=== PATIENT | male | born 1975 | race Caucasian/White ===

== ENCOUNTER 2016-11-12 14:44 | Emergency (ER) | payer OTHER ==
[~2016-11-12] VITALS: Ht 188 cm; Wt 188.0 kg
[~2016-11-12 14:44] MED LIST: BENZ100 PO; CHERSYP2 PO; ENAL20TA PO; HYDR25TA5 PO; LEVA500T PO; MEDR4PAK PO; METO50TA PO; NIFE60TA58 PO; VENTAER INH
[2016-11-12 14:48] VITALS: BP 166/88; PULSE 83; RESP 16; TEMP 98.2; O2SAT 95
[2016-11-12] MEDS ORDERED: SODIUM CHLOR 0.9% 1000 ML INJ 1,000 ML IV ONE (15:00)
[2016-11-12] MEDS ORDERED: ONDANSETRON HCL 4 MG/2 ML VIAL IV PUSH ONE (15:00)
--- NOTE | 2016-11-12 15:13 | PD ---
HPI Chief Complaint: GI Complaint Time Seen by Provider: 14:54 Travel History International Travel<30 days: No Contact w/Intl Traveler<30days: No Traveled to known affect area: No History of Present Illness HPI 40-year-old male presents with nonbloody vomiting and diarrhea since with now generalized weakness. He states that he feels worse when he moves around. He denies other modifying factors. He denies any current abdominal pain or fever or other complaints. He is been taking his blood pressure medication like he should except for he ran out of hydrochlorothiazide. Quality is nonbloody. Severity is about 2 episodes or so per day. PFSH Past Medical History Arthritis: Yes Asthma: Yes Autoimmune Disease: No Anxiety: Yes Heart Rhythm Problems: Yes (PVC'S) Cancer: No Cardiac Catheterization: No Cardiovascular Problems: Yes (htn on meds) High Cholesterol: Yes Chemotherapy: No Chest Pain: Yes Congestive Heart Failure: No Cerebrovascular Accident: No Diabetes: No Diminished Hearing: No Endocrine: No Gastrointestinal Disorders: Yes GERD: Yes Headaches: Yes Hypertension: Yes Kidney Stones: Yes Musculoskeletal: Yes Neurologic: Yes Psychiatric: Yes (PANIC ATTACKS) Reproductive: No Respiratory: Yes (? asthma) Immunizations Current: Yes Migraines: Yes Radiation Therapy: No Past Surgical History Coronary Artery Bypass Graft: No Other Surgery: Yes Social History Alcohol Use: Yes (OCCASSIONAL BEER) Tobacco Use: No Substance Use: No Allergies-Medications (Allergen,Severity, Reaction): Coded Allergies: Bees (Verified Allergy, Severe, Anaphylaxis, 11/12/16) . Latex (Verified Allergy, Intermediate, Rash, 11/12/16) . Uncoded Allergies: WASPS (Allergy, Severe, Anaphylaxis, 05/27/16) . Reported Meds & Prescriptions Reported Meds & Active Scripts Active Phenergan (Promethazine HCl) 25 Mg Tab 25 Mg PO Q6H PRN Reported Pantoprazole (Pantoprazole Sodium) 40 Mg Tab 40 Mg PO DAILY Gabapentin 100 Mg Cap 100 Mg PO TID Trazodone (Trazodone HCl) 100 Mg Tab 200 Mg PO HS Metoprolol Tartrate 50 Mg Tab 1.5 Tab PO BID Nifedipine ER 24 HR (Nifedipine) 60 Mg Tab 60 Mg PO DAILY Enalapril (Enalapril Maleate) 20 Mg Tab 20 Mg PO BID Hydrochlorothiazide 25 Mg Tab 25 Mg PO DAILY Review of Systems Except as stated in HPI: all other systems reviewed are Neg Physical Exam Narrative GENERAL: Well-nourished, well-developed patient. well appearing SKIN: Warm and dry. HEAD: Normocephalic and atraumatic. EYES: No injection or drainage. ENT: No nasal drainage noted. NECK: Supple, trachea midline. CARDIOVASCULAR: Regular rate and rhythm RESPIRATORY: no increased effort. No accessory muscle use. GASTROINTESTINAL: Abdomen soft, non-tender, nondistended. EXTREMITIES: No edema. NEUROLOGICAL: Awake and alert. Motor and sensory grossly within normal limits. Normal speech. Data Data Last Documented VS Vital Signs Date Time Temp Pulse Resp B/P Pulse Ox O2 Delivery O2 Flow Rate FiO2 11/12/16 14:48 98.2 83 16 166/88 95 Orders Complete Blood Count With Diff (11/12/16 15:00) Basic Metabolic Panel (Bmp) (11/12/16 15:00) Iv Access Insert/Monitor (11/12/16 15:00) Ondansetron Inj (Zofran Inj) (11/12/16 15:00) Sodium Chlor 0.9% 1000 Ml Inj (Ns 1000 M (11/12/16 15:00) Labs Laboratory Tests Test 11/12/16 15:10 White Blood Count 8.9 TH/MM3 Red Blood Count 4.96 MIL/MM3 Hemoglobin 14.4 GM/DL Hematocrit 42.9 % Mean Corpuscular Volume 86.4 FL Mean Corpuscular Hemoglobin 29.1 PG Mean Corpuscular Hemoglobin 33.7 % Concent Red Cell Distribution Width 12.3 % Platelet Count 276 TH/MM3 Mean Platelet Volume 7.4 FL Neutrophils (%) (Auto) 67.5 % Lymphocytes (%) (Auto) 22.1 % Monocytes (%) (Auto) 7.8 % Eosinophils (%) (Auto) 1.8 % Basophils (%) (Auto) 0.8 % Neutrophils # (Auto) 5.9 TH/MM3 Lymphocytes # (Auto) 2.0 TH/MM3 Monocytes # (Auto) 0.7 TH/MM3 Eosinophils # (Auto) 0.2 TH/MM3 Basophils # (Auto) 0.1 TH/MM3 CBC Comment DIFF FINAL Differential Comment Sodium Level 143 MEQ/L Potassium Level 3.6 MEQ/L Chloride Level 107 MEQ/L Carbon Dioxide Level 28.5 MEQ/L Anion Gap 8 MEQ/L Blood Urea Nitrogen 14 MG/DL Creatinine 0.84 MG/DL Estimat Glomerular Filtration 100 ML/MIN Rate Random Glucose 115 MG/DL Calcium Level 8.3 MG/DL MDM Medical Decision Making Medical Screen Exam Complete: Yes Emergency Medical Condition: Yes Medical Record Reviewed: Yes (pmh confirmed) Interpretation(s) CBC & BMP Diagram 11/12/16 15:10 Differential Diagnosis Gastroenteritis, acute renal failure, electrolyte deficiency, colitis Narrative Course Will check labs and dose with IV fluids and Zofran and reevaluate labs wnl, Patient denies any new complaints and states that they are feeling better. no emesis here, Patient happy with care, all questions answered. Patient knows that follow up is incumbent on them and to return to the emergency room immediately if new or worsening symptoms develop. Patient given strict return precautions, vitals reviewed and are normal, agrees to further workup as an outpatient. Diagnosis Primary Impression: Vomiting and diarrhea Patient Instructions: General Instructions Additional Instructions: phenergan as needed, keep hydrated, follow with primary this week for recheck Med/Other Pt SpecificInfo: Prescription(s) given Scripts Promethazine (Phenergan)25 Mg Tab25 Mg PO Q6H PRN (NAUSEA OR VOMITING) #15 TAB Prov:Aishwarya Bailey MD 11/12/16 Disposition: 01 DISCHARGE HOME Condition: Stable Aishwarya Bailey MD November 12, 2016 15:13 Aishwarya Bailey MD November 12, 2016 15:13
[2016-11-12 15:18] LABS: AUTOMATED NEUTROPHIL # 5.9 TH/MM3 (1.8-7.7); BASOPHIL # 0.1 TH/MM3 (0-0.2); BASOPHIL % 0.8 % (0.0-2.0); EOSINOPHIL # 0.2 TH/MM3 (0-0.4); EOSINOPHIL % 1.8 % (0.0-4.0); HEMATOCRIT 42.9 % (39.0-51.0); HEMO FLAGS DIFF FINAL; LYMPH % 22.1 % (9.0-44.0); MEAN CELL VOLUME 86.4 FL (80.0-100.0); MEAN CORPUSCULAR HEMOGLOBIN 29.1 PG (27.0-34.0); MEAN CORPUSCULAR HGB CONC 33.7 % (32.0-36.0); MONO % 7.8 % (0.0-8.0); NEUT % 67.5 % (16.0-70.0); PLATELET COUNT 276 TH/MM3 (150-450); RED BLOOD COUNT 4.96 MIL/MM3 (4.50-5.90); RED CELL DISTRIBUTION WIDTH 12.3 % (11.6-17.2); WHITE BLOOD COUNT 8.9 TH/MM3 (4.0-11.0)
[2016-11-12] MEDS ORDERED: GABA100C4 PO (15:26)
[2016-11-12] MEDS ORDERED: TRAZ100T4 PO (15:26)
[2016-11-12] MEDS ORDERED: PANT40TA3 PO (15:26)
[2016-11-12 15:28] LABS: POTASSIUM 3.6 MEQ/L (3.5-5.1)
[2016-11-12 15:31] LABS: BICARBONATE 28.5 MEQ/L (21.0-32.0)
[2016-11-12] MEDS ORDERED: PROM25TA5 PO (15:40)
[2016-11-12 16:11] VITALS: BP 154/67; PULSE 70; RESP 18; O2SAT 96
== END 2016-11-12 16:20 | disposition home or self-care (01) ==
LOC: PHED 14:44
DX: R19.7 Diarrhea, unspecified (principal); R11.10 Vomiting, unspecified; R53.1 Weakness
CPT/HCPCS: 80048; 85025; 96361; 96374; 99284; J2405; J7030

== ENCOUNTER 2017-05-27 12:59 | Inpatient (IN) | payer OTHER ==
[~2017-05-27] VITALS: Ht 198.1 cm; Wt 181.6 kg
[2017-05-27] VITALS (8 sets, daily range): BP systolic 127–181; BP diastolic 64–87; PULSE 75–88; RESP 18–22; TEMP 97.5–100.3; O2SAT 94–98
[~2017-05-27 12:59] MED LIST changes: -BENZ100 PO; -CHERSYP2 PO; +GABA100C4 PO; -LEVA500T PO; -MEDR4PAK PO; +PANT40TA3 PO; +PROM25TA5 PO; +TRAZ100T4 PO; -VENTAER INH
[2017-05-27] MEDS ORDERED: DEXAMETHASONE SOD PHOS 4 MG/ML VIAL IM ONE (13:15)
--- NOTE | 2017-05-27 13:19 | PD ---
HPI Chief Complaint: Cold / Flu Symptoms Time Seen by Provider: 13:09 Travel History International Travel<30 days: No Contact w/Intl Traveler<30days: No Traveled to known affect area: No History of Present Illness HPI 41-year-old male complains of coughing congestion shortness of breath and wheezing. Patient states that he started having congestion 3 days ago. Patient started having dry cough as yesterday. Patient states that the cough occasionally with sputum production. Patient denies any chest pain. Patient states that he has shortness of breath. Patient has history of asthma. Patient has been using inhaler at home. Patient states that he has mild headache, body ache, fever chills also. PFSH Past Medical History Arthritis: Yes Asthma: Yes Autoimmune Disease: No Anxiety: Yes Heart Rhythm Problems: Yes (PVC'S) Cancer: No Cardiac Catheterization: No Cardiovascular Problems: Yes (htn on meds) High Cholesterol: Yes Chemotherapy: No Chest Pain: Yes Congestive Heart Failure: No Cerebrovascular Accident: No Diabetes: No Diminished Hearing: No Endocrine: No Gastrointestinal Disorders: Yes GERD: Yes Headaches: Yes Heparin Induced Thrombocytopen: No Hypertension: Yes Implanted Vascular Access Dvce: No Kidney Stones: Yes Musculoskeletal: Yes Neurologic: Yes Psychiatric: Yes (PANIC ATTACKS) Reproductive: No Respiratory: Yes (? asthma) Immunizations Current: Yes Migraines: Yes Radiation Therapy: No Past Surgical History Coronary Artery Bypass Graft: No Other Surgery: Yes Social History Alcohol Use: Yes (OCCASSIONAL BEER) Tobacco Use: No Substance Use: No Allergies-Medications (Allergen,Severity, Reaction): Coded Allergies: bee venom protein (honey bee) (Unverified Allergy, Severe, Anaphylaxis, ) . latex (Unverified Allergy, Intermediate, Rash, 05/27/17) . Uncoded Allergies: WASPS (Allergy, Severe, Anaphylaxis, 05/27/16) . Reported Meds & Prescriptions Reported Meds & Active Scripts Active Zithromax Z-Oral (Azithromycin) 250 Mg Dspk 250 Mg PO DIRECTED 500 MG (2 tabs) day 1, then 1 tab days 2-5. [Phenergan W Codein] 10 Ml PO Q6HR Symbicort Inh (Budesonide/Formoterol Fumarate) 160-4.5 Mcg/Act Aero 2 Puff INH Q12HR Ventolin Hfa 18 GM Inh (Albuterol Sulfate) 90 Mcg/Act Aer 2 Puff INH Q4H PRN Prednisone 20 Mg Tab 20 Mg PO BID Reported Potassium Chloride ER (Potassium Chloride) 10 Meq Cap Unknown Dose PO DAILY Furosemide 40 Mg Tab Unknown Dose PO DAILY [place] Plus Cold (Ysfgicifbolhtcbd-Ggvhdstiojxhe-Uvrspbt) 2-7.8-325 Mg Tab 2 Tab PO Q4H PRN Fully disolve tablets in 4 oz of water. Pantoprazole (Pantoprazole Sodium) 40 Mg Tab 40 Mg PO DAILY Gabapentin 100 Mg Cap 100 Mg PO TID Metoprolol Tartrate 50 Mg Tab 1.5 Tab PO BID Nifedipine ER 24 HR (Nifedipine) 60 Mg Tab 60 Mg PO DAILY Enalapril (Enalapril Maleate) 20 Mg Tab 20 Mg PO BID Hydrochlorothiazide 25 Mg Tab 25 Mg PO DAILY Review of Systems General / Constitutional: Positive: Fever Eyes: No: Visual changes HENT: No: Headaches Cardiovascular: No: Chest Pain or Discomfort Respiratory: Positive: Cough, Shortness of Breath, Wheezing Gastrointestinal: No: Abdominal Pain Genitourinary: No: Dysuria Musculoskeletal: No: Pain Skin: No Rash Neurologic: No: Weakness Psychiatric: No: Depression Endocrine: No: Polydipsia Hematologic/Lymphatic: No: Easy Bruising Physical Exam Narrative GENERAL: Well-nourished, well-developed patient. SKIN: Focused skin assessment warm/dry. HEAD: Normocephalic. EYES: No scleral icterus. No injection or drainage. NECK: Supple, trachea midline. No JVD or lymphadenopathy. CARDIOVASCULAR: Regular rate and rhythm without murmurs, gallops, or rubs. RESPIRATORY: Breath sounds equal bilaterally. No accessory muscle use. Patient has moderate expiratory wheezes bilaterally. No rhonchi. GASTROINTESTINAL: Abdomen soft, non-tender, nondistended. MUSCULOSKELETAL: No cyanosis, or edema. BACK: Nontender without obvious deformity. No CVA tenderness. Neurologic exam normal. Data Data Last Documented VS Vital Signs Date Time Temp Pulse Resp B/P (MAP) Pulse Ox O2 Delivery O2 Flow Rate FiO2 05/27/17 14:15 88 20 143/70 (94) 96 Room Air 05/27/17 13:04 100.3 Orders Orders Influenzae A/B Antigen (05/27/17 13:13) Chest, Single Ap (05/27/17 13:13) Albuterol-Ipratropium Neb (Duoneb Neb) (05/27/17 13:15) Dexamethasone Inj (Decadron Inj) (05/27/17 13:15) Acetamin-Codeine 120-12 Liq (Tylenol - C (05/27/17 14:00) Albuterol-Ipratropium Neb (Duoneb Neb) (05/27/17 14:00) Complete Blood Count With Diff (05/27/17 14:30) Basic Metabolic Panel (Bmp) (05/27/17 14:30) Iv Access Insert/Monitor (05/27/17 14:30) Oximetry (05/27/17 14:30) [facility] Medical Decision Making Medical Screen Exam Complete: Yes Emergency Medical Condition: Yes Interpretation(s) Last Impressions Chest X-Ray 05/27/17 1313 Signed Impressions: Service Date/Time: Saturday, May 27, 2017 13:39 - CONCLUSION: Compensated cardiomegaly otherwise negative Rony Garcia MD FACR Influenza AB antigen negative. Differential Diagnosis Differential diagnosis including viral syndrome, bronchitis, pneumonia, acute exacerbation of asthma. Narrative Course 41-year-old male with coughing congestion and shortness of breath. History of asthma. Albuterol with Atrovent unit dose treatment 3. Decadron 8 mg IM. Tylenol with codeine 12.5 mL by mouth given. Patient has persistent shortness of breath, persistent severe coughing spells, chest wall pain with coughing. Patient has moderate expiratory wheezes bilaterally after the treatment. Diagnosis Primary Impression: Acute asthma exacerbation Qualified Codes: J45.41 - Moderate persistent asthma with (acute) exacerbation Additional Impression: Acute bronchitis Qualified Codes: J20.9 - Acute bronchitis, unspecified Admitting Information Admitting Physician Requests: Observation Scripts Azithromycin (Zithromax Z-Oral) 250 Mg Dspk 250 MG PO DIRECTED for Infection, #1 DSPK 0 Refills 500 MG (2 tabs) day 1, then 1 tab days 2-5. Prov: Irvin Diehl MD 05/27/17 [Phenergan W Codein] No Conflict Check 10 ML PO Q6HR for Cough, #120 Prov: Irvin Diehl MD 05/27/17 Budesonide-Formoterol Inh (Symbicort Inh) 160-4.5 Mcg/Act Aero 2 PUFF INH Q12HR, #1 INHALER 0 Refills Prov: Irvin Diehl MD 05/27/17 Albuterol 18 GM Inh (Ventolin Hfa 18 GM Inh) 90 Mcg/Act Aer 2 PUFF INH Q4H Y for SHORTNESS OF BREATH, #1 INHALER 0 Refills Prov: Irvin Diehl MD 05/27/17 Prednisone (Prednisone) 20 Mg Tab 20 MG PO BID, #10 TAB 0 Refills Prov: Irvin Diehl MD 05/27/17 Irvin Diehl MD May 27, 2017 13:19
[2017-05-27] MEDS ORDERED: POTA10CA PO (13:23)
[2017-05-27] MEDS ORDERED: CHLOTAB5 PO (13:23)
[2017-05-27] MEDS ORDERED: FURO40TA PO (13:23)
[2017-05-27] MEDS: RESP: ALBUTEROL 2.5 MG/IPRATROPIUM 0.5 MG NEB (SCH) INH ×2 (13:24→13:25)
[2017-05-27] MEDS ORDERED: RESP: ALBUTEROL 2.5 MG/IPRATROPIUM 0.5 MG NEB (SCH) INH ONE ×2 (14:00→16:00)
[2017-05-27] MEDS ORDERED: ACETAMINOPHEN/CODEINE ELIX 120 MG/12 MG/5 ML CUP PO ONE (14:00)
--- NOTE | 2017-05-27 14:03 | RADRPT ---
EXAM DATE/TIME: 05/27/2017 13:39 [place] COMPARISON: CHEST SINGLE AP, August 25, 2014, 1:21. INDICATIONS : Short of breath MEDICAL HISTORY : Hypertension. Asthma SURGICAL HISTORY : None. ENCOUNTER: Initial ACUITY: 1 day PAIN SCORE: 0/10 LOCATION: Bilateral chest FINDINGS: The lungs are clear. The heart is minimally enlarged. The pulmonary vascularity is normal. There is n o evidence for infiltrate or failure. The portion of the bony skeleton visualized is unremarkable. CONCLUSION: Compensated cardiomegaly otherwise negative Rony Garcia MD FACR on May 27, 2017 at 14:01 Board Certified Radiologist. This report was verified electronically.
[2017-05-27] MEDS ORDERED: VENTAER INH (14:16)
[2017-05-27] MEDS ORDERED: SYMB160A INH (14:16)
[2017-05-27] MEDS ORDERED: PHENERGAN W CODEIN PO (14:16)
[2017-05-27] MEDS ORDERED: PRED20 PO (14:16)
[2017-05-27] MEDS ORDERED: ZITHTAB PO (14:17)
[2017-05-27 15:09] LABS: AUTOMATED NEUTROPHIL # 12.7 TH/MM3 (1.8-7.7); BASOPHIL # 0.2 TH/MM3 (0-0.2); BASOPHIL % 1.4 % (0.0-2.0); EOSINOPHIL # 0.1 TH/MM3 (0-0.4); EOSINOPHIL % 0.7 % (0.0-4.0); HEMATOCRIT 44.2 % (39.0-51.0); LYMPH % 12.9 % (9.0-44.0); LYMPHOCYTE # 2.1 TH/MM3 (1.0-4.8); MEAN CELL VOLUME 88.5 FL (80.0-100.0); MEAN CORPUSCULAR HEMOGLOBIN 29.9 PG (27.0-34.0); MEAN CORPUSCULAR HGB CONC 33.7 % (32.0-36.0); MONO % 8.4 % (0.0-8.0); NEUT % 76.6 % (16.0-70.0); PLATELET COUNT 272 TH/MM3 (150-450); RED BLOOD COUNT 4.99 MIL/MM3 (4.50-5.90); WHITE BLOOD COUNT 16.5 TH/MM3 (4.0-11.0)
[2017-05-27 15:14] LABS: POTASSIUM 4.1 MEQ/L (3.5-5.1)
[2017-05-27 15:17] LABS: BICARBONATE 28.3 MEQ/L (21.0-32.0)
[2017-05-27 15:27] LABS: HEMO FLAGS AUTO DIFF
[2017-05-27] MEDS ORDERED: LIDOCAINE HCL 4% TOPICAL SOLN 50 ML BTL TOPICAL ONE (15:45)
[2017-05-27 15:50] LABS: SCAN/DIFF AUTO DIFF CONFIRMED
[2017-05-27] MEDS ORDERED: RESP: LIDOCAINE HCL 4% PF 5 ML NEB NEB ONE (16:15)
[2017-05-27] MEDS ORDERED: KETOROLAC TROMETHAMINE 30 MG/ML (IVP) VIAL IV PUSH ONE (17:00)
[2017-05-27] MEDS ORDERED: RESP: ALBUTEROL 2.5 MG/3 ML NEB (PRN) NEB (17:00)
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
[2017-05-27] MEDS: GABAPENTIN 100 MG CAP PO SCH (17:40)
[2017-05-27] MEDS: LEVOFLOXACIN 750 MG PREMIX INJ 150 ML IV SCH (18:14)
[2017-05-27] MEDS ORDERED: SODIUM CHLOR 0.9% 1000 ML INJ 1,000 ML IV ONE ×2 (18:15)
[2017-05-27] MEDS: RESP: LIDOCAINE HCL 4% PF 5 ML NEB NEB PRN (19:56)
[2017-05-27] MEDS: RESP: ALBUTEROL 2.5 MG/IPRATROPIUM 0.5 MG NEB (SCH) NEB (19:56)
[2017-05-27 20:36] LABS: LACTIC ACID GHOST NOT REPORTABLE
[2017-05-27] MEDS: SODIUM CHLOR 0.9% 1000 ML INJ 1,000 ML IV SCH (20:46)
[2017-05-27] MEDS: BUDESONIDE-FORMOTEROL 160/4.5 MCG INHALER INH SCH (20:47)
[2017-05-27] MEDS: PROMETHAZINE/CODEINE 6.25 MG/10 MG/5 ML CUP PO PRN (20:47)
[2017-05-27] MEDS: ENALAPRIL MALEATE 10 MG TAB PO SCH (20:47)
[2017-05-27] MEDS ORDERED: ACETAMINOPHEN/HYDROcodone 325 MG/7.5 MG TAB PO ONE (21:30)
[2017-05-28] VITALS (7 sets, daily range): BP systolic 120–145; BP diastolic 60–75; PULSE 81–104; RESP 20–24; TEMP 96.6–97.7; O2SAT 93–98
[2017-05-28 02:42] LABS: BLOOD, URINE NEG (NEG); GLUCOSE,URINE NEG (NEG); KETONE, URINE TRACE mg/dL (NEG); NITRITE,URINE NEG (NEG)
[2017-05-28 02:43] LABS: MUCUS URINE MANY /lpf (OCC); URINE COLOR YELLOW (YELLW/STRAW)
[2017-05-28 02:45] LABS: BACTERIA, URINE MOD /hpf; SQUAMOUS EPITHELIAL CELL URINE > 8 /hpf (0-5)
[2017-05-28 02:46] LABS: COMMENT (UR) CULTURE INDICATED; CULTURE IF INDICATED CULTURE INDICATED
[2017-05-28] MEDS: PROMETHAZINE/CODEINE 6.25 MG/10 MG/5 ML CUP PO PRN ×5 (02:49→20:19)
[2017-05-28] MEDS: SODIUM CHLOR 0.9% 1000 ML INJ 1,000 ML IV SCH ×2 (03:23→08:58)
[2017-05-28 03:51] LABS: AUTOMATED NEUTROPHIL # 13.7 TH/MM3 (1.8-7.7); BASOPHIL % 0.1 % (0.0-2.0); EOSINOPHIL % 0.1 % (0.0-4.0); HEMATOCRIT 42.3 % (39.0-51.0); LYMPH % 5.9 % (9.0-44.0); LYMPHOCYTE # 0.9 TH/MM3 (1.0-4.8); MEAN CELL VOLUME 88.8 FL (80.0-100.0); MEAN CORPUSCULAR HEMOGLOBIN 29.3 PG (27.0-34.0); MONO % 5.5 % (0.0-8.0); NEUT % 88.4 % (16.0-70.0); PLATELET COUNT 256 TH/MM3 (150-450); RED BLOOD COUNT 4.76 MIL/MM3 (4.50-5.90); RED CELL DISTRIBUTION WIDTH 13.1 % (11.6-17.2); WHITE BLOOD COUNT 15.4 TH/MM3 (4.0-11.0)
[2017-05-28] MEDS: RESP: ALBUTEROL 2.5 MG/IPRATROPIUM 0.5 MG NEB (SCH) NEB ×7 (03:58→23:25)
[2017-05-28] MEDS ORDERED: KETOROLAC TROMETHAMINE 30 MG/ML (IVP) VIAL IV PUSH ONE (04:00)
[2017-05-28 04:05] LABS: CHLORIDE 99 MEQ/L (98-107); SODIUM (NA) 135 MEQ/L (136-145)
[2017-05-28 04:09] LABS: ANION GAP 8 MEQ/L (5-15); BICARBONATE 27.9 MEQ/L (21.0-32.0); BLOOD UREA NITROGEN 21 MG/DL (7-18)
[2017-05-28 04:12] LABS: ALT (GPT) 23 U/L (12-78); AST (GOT) 9 U/L (15-37); GLOMERULAR FILTRATION RATE 84 ML/MIN (>89)
[2017-05-28 04:13] LABS: TOTAL BILIRUBIN ADULT 0.2 MG/DL (0.2-1.0)
[2017-05-28 04:14] LABS: ALKALINE PHOSPHATASE 61 U/L (45-117)
[2017-05-28 04:22] LABS: HEMO FLAGS AUTO DIFF
[2017-05-28 04:23] LABS: PLATELET ESTIMATE SMEAR NORMAL (NORMAL); PLATELET MORPHOLOGY NORMAL (NORMAL); SCAN/DIFF AUTO DIFF CONFIRMED
[2017-05-28 05:44] LABS: LACTIC ACID GHOST NOT REPORTABLE
[2017-05-28 06:49] LABS: POTASSIUM 3.7 MEQ/L (3.5-5.1)
[2017-05-28 06:54] LABS: BICARBONATE 25.7 MEQ/L (21.0-32.0)
[2017-05-28] MEDS: RESP: LIDOCAINE HCL 4% PF 5 ML NEB NEB PRN ×3 (07:21→23:26)
[2017-05-28] MEDS: BUDESONIDE-FORMOTEROL 160/4.5 MCG INHALER INH SCH ×2 (08:52→20:18)
[2017-05-28] MEDS: HYDROCHLOROTHIAZIDE 25 MG TAB PO SCH (08:53)
[2017-05-28] MEDS: GABAPENTIN 100 MG CAP PO SCH ×3 (08:53→18:02)
[2017-05-28] MEDS: ENALAPRIL MALEATE 10 MG TAB PO SCH ×2 (08:53→20:19)
[2017-05-28] MEDS: PANTOPRAZOLE SOD 40 MG DELAYED RELEASE TAB PO SCH (08:53)
[2017-05-28] MEDS: NIFEdipine 60 MG SUSTAINED RELEASE TAB PO SCH (08:53)
[2017-05-28] MEDS ORDERED: NEBULIZER1 MI1 (11:40)
--- NOTE | 2017-05-28 16:07 | HHI.PR ---
Subjective Remarks Patient continues to complain of significant cough which is intractable. Previously duo nebs helping but no longer. Mild shortness of breath. He has pain below the rib cage bilaterally which is worse with coughing and severe. Objective Vitals Vital Signs Date Time Temp Pulse Resp B/P (MAP) Pulse Ox O2 Delivery O2 Flow Rate FiO2 05/28/17 11:41 97.0 101 24 139/64 (89) 95 05/28/17 08:00 96.9 81 24 145/73 (97) 95 05/28/17 07:23 95 Nasal Cannula 2.00 05/28/17 00:00 97.1 86 20 120/60 (80) 93 05/27/17 20:00 97.5 75 22 141/71 (94) 98 05/27/17 19:56 97 Nasal Cannula 2.00 05/27/17 17:00 98.2 83 18 127/64 (85) 97 05/27/17 16:14 98 21 05/27/17 16:06 I/O 05/27/17 05/27/17 05/27/17 05/28/17 05/28/17 05/28/17 07:00 15:00 23:00 07:00 15:00 23:00 Intake Total 480 ml 840 ml 2520 ml Balance 480 ml 840 ml 2520 ml Intake Oral 480 ml 840 ml 1520 ml IV Total 1000 ml # Voids 4 3 # Bowel Movements 0 Result Diagram: 05/28/17 0330 05/28/17 0440 Objective Remarks GENERAL: Well-nourished, well-developed pleasant obese male patient. SKIN: Warm and dry. HEAD: Normocephalic. EYES: No scleral icterus. No injection or drainage. NECK: Supple, trachea midline. No JVD or lymphadenopathy. CARDIOVASCULAR: Regular rate and rhythm without murmurs, gallops, or rubs. RESPIRATORY: Breath sounds equal bilaterally. No wheezing however he does have a harsh sounding intractable cough. No accessory muscle use. GASTROINTESTINAL: Abdomen soft, non-tender, nondistended. EXTREMITIES: No cyanosis, or edema. NEUROLOGICAL: Awake, alert, and oriented x 3. Non-focal. A/P Assessment and Plan -Acute asthma exacerbation with bronchitis. Continue Levaquin, DuoNeb's, oxygen via nasal cannula, Symbicort, oxygen via nasal cannula. Codeine cough syrup. We'll also start Tessalon Perles. -Possible sepsis presented with fever and leukocytosis abnormal UA. Elevated lactic acid has now returned to normal. Will DC IV fluids. Follow up urine and blood cultures. Continue Levaquin. -Hypertension. Continue HCTZ and Procardia and enalapril. -Abdominal wall pain. Add Lortab. -DVT prophylaxis with SCDs. Bibiana Suresh MD May 28, 2017 16:07
[2017-05-28] MEDS: ACETAMINOPHEN/HYDROcodone 325 MG/5 MG TAB PO PRN (16:40)
[2017-05-28] MEDS: methylPREDNISolone SOD SUCC 40 MG/1 ML VIAL IV PUSH SCH (17:59)
[2017-05-28] MEDS: BENZONATATE 100 MG CAP PO SCH (18:02)
[2017-05-28] MEDS: LEVOFLOXACIN 750 MG PREMIX INJ 150 ML IV SCH (18:03)
[2017-05-29] VITALS (10 sets, daily range): BP systolic 134–152; BP diastolic 64–82; PULSE 90–105; RESP 17–20; TEMP 97.4–98.5; O2SAT 93–98
[2017-05-29] MEDS: methylPREDNISolone SOD SUCC 40 MG/1 ML VIAL IV PUSH SCH ×4 (00:04→17:55)
[2017-05-29] MEDS ORDERED: MAGNESIUM HYDROXIDE SUSP 30 ML CUP PO ONE (00:30)
[2017-05-29] MEDS ORDERED: ZOLPIDEM TARTRATE 5 MG TAB PO ONE (00:30)
[2017-05-29] MEDS: DOCUSATE SODIUM 50 MG/SENNA 8.6 MG TAB PO PRN ×2 (00:37→09:32)
[2017-05-29] MEDS: PROMETHAZINE/CODEINE 6.25 MG/10 MG/5 ML CUP PO PRN ×5 (03:30→22:10)
[2017-05-29] MEDS: RESP: ALBUTEROL 2.5 MG/IPRATROPIUM 0.5 MG NEB (SCH) NEB ×6 (03:55→23:12)
[2017-05-29] MEDS: NIFEdipine 60 MG SUSTAINED RELEASE TAB PO SCH (09:17)
[2017-05-29] MEDS: PANTOPRAZOLE SOD 40 MG DELAYED RELEASE TAB PO SCH (09:17)
[2017-05-29] MEDS: ENALAPRIL MALEATE 10 MG TAB PO SCH ×2 (09:17→20:23)
[2017-05-29] MEDS: HYDROCHLOROTHIAZIDE 25 MG TAB PO SCH (09:17)
[2017-05-29] MEDS: BENZONATATE 100 MG CAP PO SCH ×3 (09:17→17:54)
[2017-05-29] MEDS: GABAPENTIN 100 MG CAP PO SCH ×3 (09:17→17:53)
[2017-05-29] MEDS: ACETAMINOPHEN/HYDROcodone 325 MG/5 MG TAB PO PRN ×4 (09:18→22:10)
--- NOTE | 2017-05-29 09:31 | HHI.PR ---
Subjective Remarks Patient feels that the cough is not improved. Pain under his ribs is still present. No shortness of breath except during coughing fits. Objective Vitals Vital Signs Date Time Temp Pulse Resp B/P (MAP) Pulse Ox O2 Delivery O2 Flow Rate FiO2 05/29/17 07:40 97 21 05/29/17 07:27 98 Nasal Cannula 2.00 05/29/17 00:00 98.5 90 20 134/72 (92) 95 05/28/17 20:00 96.6 93 20 138/68 (91) 96 05/28/17 19:10 98 Nasal Cannula 2.00 05/28/17 16:00 97.7 104 24 139/75 (96) 94 05/28/17 11:41 97.0 101 24 139/64 (89) 95 I/O 05/28/17 05/28/17 05/28/17 05/29/17 05/29/17 05/29/17 07:00 15:00 23:00 07:00 15:00 23:00 Intake Total 840 ml 2520 ml 1152 ml 640 ml Balance 840 ml 2520 ml 1152 ml 640 ml Intake Oral 840 ml 1520 ml 640 ml IV Total 1000 ml 1152 ml # Voids 4 3 3 # Bowel Movements 0 0 Result Diagram: 05/28/17 0330 05/28/17 0440 Objective Remarks GENERAL: Well-nourished, well-developed pleasant obese male patient. SKIN: Warm and dry. HEAD: Normocephalic. EYES: No scleral icterus. No injection or drainage. NECK: Supple, trachea midline. No JVD or lymphadenopathy. CARDIOVASCULAR: Regular rate and rhythm without murmurs, gallops, or rubs. RESPIRATORY: Breath sounds equal bilaterally. End expiratory wheezing bilaterally. Harsh sounding intractable cough. No accessory muscle use. GASTROINTESTINAL: Abdomen soft, non-tender, nondistended. EXTREMITIES: No cyanosis, or edema. NEUROLOGICAL: Awake, alert, and oriented x 3. Non-focal. A/P Assessment and Plan -Acute asthma exacerbation with bronchitis. No improvement overnight. Continue Levaquin, DuoNeb's, oxygen via nasal cannula, Solu-Medrol, Symbicort, oxygen via nasal cannula. Codeine cough syrup, Tessalon Perles. -Possible sepsis presented with fever and leukocytosis abnormal UA. Elevated lactic acid has now returned to normal. Follow up urine and blood cultures. Continue Levaquin. -Hypertension. Continue HCTZ and Procardia and enalapril. -Abdominal wall pain. Continue Lortab. -DVT prophylaxis with SCDs. Bibiana Suresh MD May 29, 2017 09:31
[2017-05-29] MEDS: LEVOFLOXACIN 750 MG PREMIX INJ 150 ML IV SCH (18:07)
[2017-05-29] MEDS: BUDESONIDE-FORMOTEROL 160/4.5 MCG INHALER INH SCH ×2 (18:07→20:26)
[2017-05-29] MEDS ORDERED: ZOLPIDEM TARTRATE 5 MG TAB PO PRN (21:00)
[2017-05-29] MEDS ORDERED: METOPROLOL TARTRATE 50 MG TAB PO ONE (21:00)
[2017-05-30] VITALS: BP 144/79; PULSE 99; RESP 18; TEMP 98.2; O2SAT 96
[2017-05-30] MEDS: methylPREDNISolone SOD SUCC 40 MG/1 ML VIAL IV PUSH SCH ×2 (00:11→05:52)
[2017-05-30] MEDS: RESP: ALBUTEROL 2.5 MG/IPRATROPIUM 0.5 MG NEB (SCH) NEB ×3 (03:00→11:12)
[2017-05-30] MEDS: PROMETHAZINE/CODEINE 6.25 MG/10 MG/5 ML CUP PO PRN (05:52)
[2017-05-30] MEDS: ACETAMINOPHEN/HYDROcodone 325 MG/5 MG TAB PO PRN (05:53)
[2017-05-30 07:50] VITALS: BP 138/91; PULSE 88; RESP 20; TEMP 98.2; O2SAT 95
[2017-05-30 07:58] VITALS: O2SAT 95
[2017-05-30] MEDS: NIFEdipine 60 MG SUSTAINED RELEASE TAB PO SCH (09:00)
[2017-05-30] MEDS: GABAPENTIN 100 MG CAP PO SCH (09:00)
[2017-05-30] MEDS: BENZONATATE 100 MG CAP PO SCH (09:00)
[2017-05-30] MEDS: ENALAPRIL MALEATE 10 MG TAB PO SCH (09:01)
[2017-05-30] MEDS: PANTOPRAZOLE SOD 40 MG DELAYED RELEASE TAB PO SCH (09:01)
[2017-05-30] MEDS: HYDROCHLOROTHIAZIDE 25 MG TAB PO SCH (09:01)
[2017-05-30] MEDS ORDERED: HYDR-3516 PO (10:22)
[2017-05-30] MEDS ORDERED: PRED20 PO (10:22)
[2017-05-30] MEDS ORDERED: Promethazine/Codeine Liq PO (10:22)
[2017-05-30] MEDS ORDERED: IPRASOL INH (10:22)
[2017-05-30] MEDS ORDERED: LEVO500T8 PO (10:22)
[2017-05-30] MEDS ORDERED: BENZ100 PO (10:22)
[2017-05-30] MEDS ORDERED: SYMB160A INH (10:22)
[2017-05-30] MEDS ORDERED: VENTAER INH (10:22)
[2017-05-30] MEDS ORDERED: NEBULIZER1 MI1 (10:22)
[2017-05-30] MEDS ORDERED: PHENERGAN W CODEIN PO (10:22)
--- NOTE | 2017-05-30 10:24 | HHI.DS ---
Discharge Summary Admission Date May 27, 2017 at 17:04 Discharge Date: May 30, 2017 Admitting Diagnosis acute exacerbation of asthma. Bronchitis. (1) Acute bronchitis ICD Code: J20.9 - Acute bronchitis, unspecified Status: Acute (2) Hypertension, benign ICD Code: I10 - Hypertension, benign Status: Acute (3) BMI 50.0-59.9, adult ICD Code: Z68.43 - BMI 50.0-59.9, adult Status: Acute Procedures None Brief History - From Admission 41-year-old white male being admitted for sepsis secondary to suspected bronchiolitis. Patient was in his usual state of health until about 2-3 days ago when he began experiencing shortness of breath after having symptoms of nasal congestion for a few days. He developed a strong cough that is rather unforgiving and progress to the point where he felt like he pulled abdominal muscle that is now causing him a lot of pain. He claims that he is compliant with all his home medications including his pro-air but states that eventually his inhaler medications stopped helping, prompting him to come to the emergency room. His shortness of breath would worsen with any exertion. He does also report noting it fever of 101.4 which prompted him to come to the emergency room ultimately. He reports feeling nauseated with some lightheadedness. Denies any vomiting or diarrhea. He states that he has had some persistent nausea after some unspecified chemical spill at work within the last 2 weeks that prompted him to go to his PCP and he's been on Zofran and Phenergan since then which are controlling his nausea. He states that he's had a lifelong exposure to secondhand smoke from his parents but he himself never smoked. CBC/BMP: 05/28/17 0330 05/28/17 0440 Significant Findings Laboratory Tests Test 05/27/17 14:59 05/27/17 18:30 05/27/17 21:37 05/28/17 02:15 White Blood Count 16.5 TH/MM3 (4.0-11.0) Neutrophils (%) (Auto) 76.6 % (16.0-70.0) Monocytes (%) (Auto) 8.4 % (0.0-8.0) Neutrophils # (Auto) 12.7 TH/MM3 (1.8-7.7) Monocytes # (Auto) 1.4 TH/MM3 (0-0.9) Estimat Glomerular Filtration Rate 82 ML/MIN (>89) Lactic Acid Level 2.5 mmol/L (0.4-2.0) 3.8 mmol/L (0.4-2.0) Urine Turbidity MOD (CLEAR) Urine Ketones TRACE mg/dL (NEG) Urine Squamous Epithelial Cells > 8 /hpf (0-5) Urine Bacteria MOD /hpf (NONE) Urine Mucus MANY /lpf (OCC) Test 05/28/17 03:30 05/28/17 04:40 05/28/17 06:40 White Blood Count 15.4 TH/MM3 (4.0-11.0) Neutrophils (%) (Auto) 88.4 % (16.0-70.0) Lymphocytes (%) (Auto) 5.9 % (9.0-44.0) Neutrophils # (Auto) 13.7 TH/MM3 (1.8-7.7) Lymphocytes # (Auto) 0.9 TH/MM3 (1.0-4.8) Blood Urea Nitrogen 21 MG/DL (7-18) 19 MG/DL (7-18) Random Glucose 141 MG/DL (74-106) 127 MG/DL (74-106) Albumin 3.3 GM/DL (3.4-5.0) Aspartate Amino Transf (AST/SGOT) 9 U/L (15-37) Sodium Level 135 MEQ/L (136-145) 135 MEQ/L (136-145) Estimat Glomerular Filtration Rate 84 ML/MIN (>89) Lactic Acid Level 3.3 mmol/L (0.4-2.0) Calcium Level 8.4 MG/DL (8.5-10.1) Imaging Last Impressions Chest X-Ray 05/27/17 1313 Signed Impressions: Service Date/Time: Saturday, May 27, 2017 13:39 - CONCLUSION: Compensated cardiomegaly otherwise negative Rony Garcia MD FACR PE at Discharge GENERAL: Well-nourished, well-developed pleasant obese male patient. SKIN: Warm and dry. HEAD: Normocephalic. EYES: No scleral icterus. No injection or drainage. NECK: Supple, trachea midline. No JVD or lymphadenopathy. CARDIOVASCULAR: Regular rate and rhythm without murmurs, gallops, or rubs. RESPIRATORY: Breath sounds equal bilaterally. Lungs are clear to auscultation bilaterally without accessory muscle use. Stable on room air. Harsh sounding cough but appears to be lessened today. GASTROINTESTINAL: Abdomen soft, non-tender, nondistended. EXTREMITIES: No cyanosis, or edema. NEUROLOGICAL: Awake, alert, and oriented x 3. Non-focal. Pt update on day of discharge Patient states that his cough has improved however he still has significant dry cough and pain under his ribs bilaterally worse with coughing. He passes oxygen walk test yesterday and does not require home oxygen. Hospital Course The patient was admitted to the hospital and treated for acute bronchitis with IV steroids, Levaquin. Initial lactic acid was elevated between a down nicely. Blood pressure was stable. Blood cultures and urine culture were negative. Patient had significant pain under his ribs secondary to coughing which was treated with Lortab. His cough was treated with multiple cough medicines. Patient has improved today. He passes oxygen walk test yesterday. He will be discharged home and is excused from work through the end of the week. Patient was given prescriptions for albuterol inhaler, nebulizer machine with DuoNeb's, prednisone, pain medicine and cough medicine. Patient is to follow-up with his primary care physician within one week. Pt Condition on Discharge: Stable Discharge Disposition: Discharge Home Discharge Time: > 30 minutes Discharge Instructions DIET: Follow Instructions for: As Tolerated, No Restrictions Activities you can perform: Regular-No Restrictions Follow up Referrals: PCP Follow-up - 3-5 Days New Medications: Albuterol 18 GM Inh (Ventolin Hfa 18 GM Inh) 90 Mcg/Act Aer 2 PUFF INH Q4H PRN for SHORTNESS OF BREATH, #1 INHALER 0 Refills Ipratropium-Albuterol Neb (Duoneb) 0.5-2.5 Mg/3 Ml Neb 1 NEBULE INH Q4HR NEB for Breathing Treatment, #180 NEBULE 0 Refills Levofloxacin (Levofloxacin) 500 Mg Tablet 500 MG PO DAILY for Infection, #4 TAB 0 Refills Nebulizer (Nebulizer) 1 Mis Mis EA .ROUTE DIRECTED for Breathing Treatment, #1 0 Refills Nebulizer (Nebulizer) 1 Mis Mis EA .ROUTE DIRECTED for Breathing Treatment, #1 0 Refills Benzonatate (Tessalon Perles) 100 Mg Cap 200 MG PO TID for cough, #60 CAP Hydrocodone/Acetaminophen (Hydrocodone-Acetamin 5-325 mg) 5 Mg-325 Mg Tablet 1 TAB PO Q4H PRN for pain, #20 TAB [Promethazine/Codeine Liq] () 5 ML SOLN 10 ML PO Q4H PRN for cough, #120 Continued Medications: Budesonide-Formoterol Inh (Symbicort Inh) 160-4.5 Mcg/Act Aero 2 PUFF INH Q12HR for Asthma Management, #1 INHALER 0 Refills (This prescription has been renewed) Ihbfatdslulvfbpv-Ywbaadvpgrmcx-Vlkcnyh (Maggie-[place] Plus Cold) 2-7.8-325 Mg Tab 2 TAB PO Q4H PRN for Cold Symptoms, TAB 0 Refills Fully disolve tablets in 4 oz of water. Enalapril (Enalapril) 20 Mg Tab 20 MG PO BID, #30 TAB 0 Refills Furosemide (Furosemide) 40 Mg Tab Unknown Dose PO DAILY, #30 TAB 0 Refills Gabapentin (Gabapentin) 100 Mg Cap 100 MG PO TID, #90 CAP 0 Refills Hydrochlorothiazide (Hydrochlorothiazide) 25 Mg Tab 25 MG PO DAILY, #30 TAB 0 Refills Metoprolol Tartrate (Metoprolol Tartrate) 50 Mg Tab 1.5 TAB PO BID, #60 TAB 0 Refills Nifedipine ER 24 HR (Nifedipine ER 24 HR) 60 Mg Tab 60 MG PO DAILY, #30 TAB 0 Refills Pantoprazole (Pantoprazole) 40 Mg Tab 40 MG PO DAILY for Reflux, #30 TAB 0 Refills Potassium Chloride ER (Potassium Chloride ER) 10 Meq Cap Unknown Dose PO DAILY for Electrolyte Replacement, #30 CAP 0 Refills Prednisone (Prednisone) 20 Mg Tab 20 MG PO BID for Asthma Management, #10 TAB 0 Refills (This prescription has been renewed) [Phenergan W Codein] () 10 ML PO Q6HR for Cough, #120 (This prescription has been renewed) Discontinued Medications: Albuterol 18 GM Inh (Ventolin Hfa 18 GM Inh) 90 Mcg/Act Aer 2 PUFF INH Q4H PRN for SHORTNESS OF BREATH, #1 INHALER 0 Refills Azithromycin (Zithromax Z-Oral) 250 Mg Dspk 250 MG PO DIRECTED for Infection, #1 DSPK 0 Refills 500 MG (2 tabs) day 1, then 1 tab days 2-5. Bibiana Suresh MD May 30, 2017 10:24
[2017-05-30] MEDS ORDERED: ADVA250A INH (15:09)
[2017-05-30] MEDS ORDERED: ALBUAER3 INH (15:09)
== END 2017-05-30 12:24 | disposition home or self-care (01) | DRG 202 ==
LOC: PHED 12:59 → PHEDA 15:02 → PH3A 16:02 → OBSVTOIN 17:04
PROVIDERS: ADMIT Family Medicine; ATTEND Family Medicine
DX: J20.9 Acute bronchitis, unspecified (principal); J45.41 Moderate persistent asthma with (acute) exacerbation; I10 Essential (primary) hypertension; M19.90 Unspecified osteoarthritis, unspecified site; E78.00 Pure hypercholesterolemia, unspecified; K21.9 Gastro-esophageal reflux disease without esophagitis; Z77.22 Contact with and (suspected) exposure to environmental tobacco smoke (acute) (chronic); R10.9 Unspecified abdominal pain; Z79.51 Long term (current) use of inhaled steroids; Z79.899 Other long term (current) drug therapy; Z87.442 Personal history of urinary calculi
CPT/HCPCS: 71010; 80048; 80053; 81001; 83605; 85025; 87040; 87086; 87804; 94620; 94640; 94664; 99285; J1100; J1885; J1956; J2920; J7030